=== PATIENT | female | born 1990 | race Caucasian/White ===

== ENCOUNTER 2019-08-13 09:35 | Day surgery (SDC) | payer BC ==
[2019-08-13] MEDS ORDERED: hydrALAZINE 20 MG/ML VIAL SLOW IVP PRN (09:57)
[2019-08-13] MEDS ORDERED: Ondansetron PF 4 MG/2 ML Vial IVP SCH (10:00)
[2019-08-13] MEDS ORDERED: Lactated Ringer's 2,000 ML IV SCH (10:00)
[2019-08-13 10:39] LABS: #Eosinphils 0.1 thou/uL (0.0-0.7); #Lymphocytes 1.9 thou/uL (1.20-3.40); #Monocytes 0.8 thou/uL (0.11-0.59); #Neutrophils 7.2 thou/uL (1.40-6.50); %Basophils 0.1 % (0.0-1.0); %Eosinophils 0.8 % (0.0-10.0); %Lymphocytes 18.7 % (21.0-51.0); %Monocytes 7.6 % (0.0-10.0); %Neutrophils 72.8 % (42.0-75.0); Hemoglobin 12.5 g/dL (12.0-16.0); Mean Corpuscular Hemoglobin 30.4 pg (27.0-31.0); Mean Corpuscular Volume 89.3 fL (78.0-98.0); Mean Platelet Volume 8.5 fL (7.4-10.4); Platelet Count 201 thou/uL (130-400); RBC Distribution Width 12.1 % (11.5-14.5); Red Blood Cell (RBC) Count 4.12 mill/uL (4.20-5.40); White Blood Cell (WBC) Count 9.9 thou/uL (4.8-10.8)
[2019-08-13 10:52] LABS: ALT (SGPT) 15 U/L (8-55); AST (SGOT) 17 U/L (5-34); Albumin 3.5 g/dL (3.5-5.0); Alkaline Phosphatase 160 U/L (40-110); Anion Gap 12 mmol/L (10-20); BUN (Urea Nitrogen) 9 mg/dL (7.0-18.7); Bilirubin, Total 0.3 mg/dL (0.2-1.2); Calc. Creatinine Clearance 0 mL/min (70-130); Calcium 8.7 mg/dL (7.8-10.44); Carbon Dioxide 17 mmol/L (22-29); Chloride 110 mmol/L (98-107); Estimated GFR-MDRD Greater than 90; Globulin 3.1 g/dL (2.4-3.5); Glucose 77 mg/dL (70-105); Protein, Total 6.6 g/dL (6.0-8.3); Sodium 135 mmol/L (136-145)
[2019-08-13] MEDS ORDERED: Dextrose 5%-Lactated Ringers 1,000 ML IV SCH (12:15)
--- NOTE | 2019-08-13 12:22 | ULT ---
SONOGRAM RIGHT UPPER QUADRANT: Date: 08/13/19 HISTORY: Right upper quadrant pain. FINDINGS: Gallbladder has a normal appearance. Common duct is 0.3 cm. Liver unremarkable without focal mass or intrahepatic biliary dilatation. No free fluid. IMPRESSION: Normal exam. POS: [facility]
[2019-08-13] MEDS ORDERED: Promethazine HCl 25 MG/ML VIAL IM SCH (12:30)
[2019-08-13 14:30] LABS: PTT 25.5 SEC (22.9-36.1); Prothrombin Time 13.2 SEC (12.0-14.7)
[2019-08-13 15:20] LABS: Bilirubin Negative (Negative); Blood, Urine Negative (Negative); Clarity Clear (Clear); Glucose, Urine (Dipstick) Normal (Negative); Leukocyte Negative Leu/uL (Negative); Nitrite Negative (Negative); Protein, Urine (Dipstick) Negative (Neg-Trace); RBC/HPF 0-3 HPF (0-3); Squamous Epithelial 0-3 HPF (0-3); Urobilinogen Normal mg/dL (Less than 2); WBC/HPF 0-3 HPF (0-3)
[2019-08-13 15:25] LABS: Bacteria/HPF None Seen HPF (None Seen)
--- NOTE | 2019-08-13 17:13 | PRG ---
DATE OF SERVICE: 08/13/2019 PRIMARY OB: Alejandro Giraldo MD CHIEF COMPLAINT: Nausea, vomiting, and abdominal pain. HISTORY OF PRESENT ILLNESS: The patient is a 29-year-old, G3, P2 female with an intrauterine at 38 weeks and a day, presenting with nausea and vomiting that began about 3 o'clock this morning and right upper quadrant abdominal pain. The patient was initially seen in the clinic at a scheduled visit, but due to her symptoms, was sent to Labor and Delivery for evaluation. The patient reports that she has not been able to keep anything down since this morning. She denies any sick contacts. She denies any diarrhea or fever. The patient denies any fall, headache, chest pain, shortness of breath, diarrhea, constipation, any new rashes, hip problems, knee problems, muscle weakness, vaginal bleeding, leakage of fluid, or urinary urgency or frequency. PAST MEDICAL HISTORY: Negative. PAST SURGICAL HISTORY: [place] teeth extraction. SOCIAL HISTORY: Denies drug, alcohol, or tobacco use. ALLERGIES: IODINE. MEDICATIONS: vitamins. OB LABORATORY DATA: Unavailable at time of dictation. REVIEW OF SYSTEMS: Per HPI. PHYSICAL EXAMINATION: VITAL SIGNS: Blood pressure 120/76, heart rate of 80, respiratory rate of 18, saturating 96% on room air, and temperature 98.1. GENERAL: On initial evaluation, the patient was visibly in some distress with desires to vomit. She was alert, oriented, cooperative, and pleasant to interact with. HEAD: Normocephalic, atraumatic. LUNGS: Clear to auscultation bilaterally. HEART: Regular rate and rhythm. ABDOMEN: Gravid, soft, and nontender. EXTREMITIES: Nontender, nonedematous. CERVIX: Deferred. heart tracing shows the fetus with a baseline in the 120s with moderate long-term variability, positive 15 x 15 accelerations, no decelerations. Of note, the patient's fetus does seem to have a arrhythmia that is not affecting heart rate or reactivity. After speaking to Dr. Giraldo about it and looking at the past records, it appears that this was also present at the beginning of June and has been audible in office visits. LABORATORY DATA: CBC; white count is 9.9, hemoglobin 12.5, hematocrit 36.8, and platelets of 201,000. AST of 17, ALT of 15, creatinine of 0.6. Fibrinogen of 454. PT 13.2, INR 1.0, and PTT 25. Urinalysis negative for blood, nitrite, protein, ketones, leukocyte esterase, and bacteria. Abdominal ultrasound, normal exam, normal-appearing gallbladder, unremarkable liver, no biliary dilatation. ASSESSMENT AND PLAN: The patient is a 29-year-old female with nausea and vomiting, likely due to some viral gastroenteritis. The patient has received about 3 L of IV fluids and has been given Zofran and Phenergan, for which she feels a lot better. The patient is feeling much better and will be discharged home with instructions to follow up with her appointment as scheduled by Dr. Giraldo. The patient has been given term labor precautions. She has been given a script for Phenergan 25 mg to be taken every 6 hours as needed #10. The patient has been counseled to seek medical attention if her symptoms worsen or persist and does not respond to medical therapy. Fetus has a category 1 tracing and reactive NST. Job ID: [id number]
[2019-08-14] MEDS ORDERED: FLU VACC QS2019-20(6MOS UP)/PF 60 MCG/0.5 ML SYRINGE IM ONE (10:15)
== END 2019-08-13 16:05 | disposition home or self-care (01) ==
LOC: L&D/OP 09:35
PROVIDERS: ATTEND Obstetrics & Gynecology
DX: O21.2 Late vomiting of pregnancy (principal); O99.89 Other specified diseases and conditions complicating pregnancy, childbirth and the puerperium; R10.11 Right upper quadrant pain; Z3A.38 38 weeks gestation of pregnancy; Z91.018 Allergy to other foods; Z91.041 Radiographic dye allergy status
CPT/HCPCS: 36415; 76705; 80053; 81001; 85025; 85384; 85610; 85730; 96360; 96361; 96372; 96375; 99283; J2405; J2550